=== PATIENT | female | born 1965 | race Caucasian/White ===

== ENCOUNTER 2022-04-04 11:54 | Inpatient (IN) | payer OTHER ==
[~2022-04-04] VITALS: Ht 152.4 cm; Wt 59.0 kg
[2022-04-04 13:55] LABS: HEMOGLOBIN 14.4 gm/dl (12.3-15.3); RED BLOOD COUNT 4.5 M/UL (4.00-5.10); WHITE BLOOD COUNT 3.4 K/UL (4.5-11.0)
[2022-04-04 14:20] LABS: BUN/CREATININE RATIO 28 (0-10)
[2022-04-04 21:50] LABS: HEMOGLOBIN 13.4 gm/dl (12.3-15.3)
[2022-04-05 05:12] LABS: HEMOGLOBIN 12.5 gm/dl (12.3-15.3)
[2022-04-05] MEDS ORDERED: DULOXETINE HCL20 MG PO (10:33)
[2022-04-05] MEDS ORDERED: METHOCARBAMOL500 MG PO (10:34)
[2022-04-05] MEDS ORDERED: METOPROLOL TART25 MG PO (10:34)
[2022-04-05] MEDS ORDERED: FUROSEMIDE20 MG PO (10:34)
[2022-04-05] MEDS ORDERED: SUCRALFATE1 GM PO (10:36)
[2022-04-05] MEDS ORDERED: LACTULOSE10 GM/15 M PO (10:37)
[2022-04-05] MEDS ORDERED: MAGOX 400400 MG PO (10:37)
[2022-04-05] MEDS ORDERED: LORATADINE10 MG PO (10:37)
[2022-04-05] MEDS ORDERED: POTASSIUM CHLO20 ME2 PO (10:38)
[2022-04-05] MEDS ORDERED: HYDROXYZINE HCL25 MG PO (10:38)
[2022-04-05] MEDS ORDERED: FLONASE ALLER15.8 ML (10:38)
[2022-04-05] MEDS ORDERED: ONDANSETRON HCL4 MG PO (10:39)
[2022-04-05] MEDS ORDERED: TYLENOL325 MG PO (10:39)
[2022-04-05 13:24] LABS: HEMOGLOBIN 12.7 gm/dl (12.3-15.3)
[2022-04-05] MEDS ORDERED: PROTONIX 40 MG40 M1 PO (14:21)
== END 2022-04-05 16:56 | disposition home or self-care (01) | DRG 432 ==
LOC: ER1 11:54 → CDU 20:29
PROVIDERS: Emergency Medicine; Internal Medicine Gastroenterology; ADMIT Internal Medicine
PROC: 06L38CZ Occlusion of Esophageal Vein with Extraluminal Device, Via Natural or Artificial Opening Endoscopic (ICD-10-PCS; principal; 2022-04-05 11:05)
DX: K70.30 Alcoholic cirrhosis of liver without ascites (principal); I85.11 Secondary esophageal varices with bleeding; D61.818 Other pancytopenia; K76.6 Portal hypertension; Z20.822 Contact with and (suspected) exposure to COVID-19; B19.20 Unspecified viral hepatitis C without hepatic coma; F32.A Depression, unspecified; F41.9 Anxiety disorder, unspecified; D69.6 Thrombocytopenia, unspecified; I11.0 Hypertensive heart disease with heart failure; I50.9 Heart failure, unspecified; Z80.1 Family history of malignant neoplasm of trachea, bronchus and lung; Z83.3 Family history of diabetes mellitus; Z87.11 Personal history of peptic ulcer disease; Z98.51 Tubal ligation status
CPT/HCPCS: 80053; 81001; 82272; 82550; 82553; 83690; 83735; 84100; 84439; 84443; 84484; 85014; 85018; 85025; 85610; 85730; 86140; 86850; 86900; 86901; 96365; 96366; 96375; 96376; 99285; C9113; J1335; J2354; J2405; J2704; J7040; Q9967